=== PATIENT | male | born 1960 | race Asian ===

== ENCOUNTER 2016-10-25 17:31 | Inpatient (IN) | payer OTHER ==
[~2016-10-25] VITALS: Ht 180.3 cm; Wt 68.5 kg
[~2016-10-25 17:31] MED LIST: ACET325T53 PO; ACID1TAB12 PO; ALBU18HF2 IH; ALLA266C2 TP; CLON1PAT2 TD; DOCU-25 PO; DRON2.5C PO; GABA300C PO; LEVO500T15 PO; LIDO30AD10 TP; Lactose-Free Food PO; MAG30ORA PO; MAGN400O6 PO; NA P133E RC; Nortriptyline Hcl PO; Ondansetron Hcl/Pf IVP; PANT40TA2 PO; RXVAN XX; TIZA4TAB4 PO
[2016-10-25] MEDS ORDERED: ONDANSETRON HCL/PF 4 MG/2 ML VIAL ONE (19:18)
[2016-10-25] MEDS ORDERED: IV SET PRIMARY 1 EA INFUS.SET MC ONE (19:18)
[2016-10-25] MEDS ORDERED: IV NS 0.9% 1,000 ML ONE (19:18)
[2016-10-25] MEDS ORDERED: HYDROMORPHONE INJ 2 MG/ML DISP.SYRIN ONE (19:18)
[2016-10-25 19:20] LABS: BASOPHILS % (AUTO) 0.5 % (0.0-2.0); DIFF TOTAL % 100 %; EOSINOPHILS # (AUTO) 0.2 /CMM (0.0-0.7); EOSINOPHILS % (AUTO) 2.7 % (0.0-6.0); HEMATOCRIT 29 % (39-51); LYMPHOCYTES # (AUTO) 1.6 /CMM (0.8-4.8); LYMPHOCYTES % (AUTO) 20.7 % (20.0-44.0); MEAN CORPUSCULAR HEMOGLOBIN 26 PG (26.0-33.0); MEAN CORPUSCULAR HGB CONC 31 g/dl (31.0-36.0); MEAN CORPUSCULAR VOLUME 83 fL (80-96); MONOCYTES # (AUTO) 0.4 /CMM (0.1-1.30); MONOCYTES % (AUTO) 5.7 % (2.0-12.0); NEUTROPHILS # (AUTO) 5.5 /CMM (1.8-8.9); NEUTROPHILS % (AUTO) 70.4 % (43.0-81.0); PLATELET COUNT (AUTO) 552 /CMM (150-450); RED BLOOD CELL COUNT(AUTO) 3.47 MIL/uL (4.5-6.0); WHITE BLOOD COUNT (AUTO) 7.7 K/uL (4.3-11.0)
[2016-10-25] MEDS ORDERED: IV NS 0.9% 1,000 ML BAG IV ONE (19:30)
[2016-10-25] MEDS ORDERED: HYDROMORPHONE INJ 2 MG/ML DISP.SYRIN IV ONE (19:30)
[2016-10-25] MEDS ORDERED: ONDANSETRON HCL/PF 4 MG/2 ML VIAL IVP ONE (19:30)
[2016-10-25 19:31] LABS: CALCIUM, SERUM 7.6 mg/dL (8.5-10.1); CREATININE 0.9 mg/dL (0.6-1.3); POTASSIUM 4.3 mmol/L (3.5-5.1)
[2016-10-25 19:37] LABS: INR 0.99 (0.87-1.13); PROTHROMBIN TIME 10.4 SECS (9.5-12.7)
[2016-10-25 20:00] VITALS: BP 166/100
[2016-10-25] MEDS ORDERED: MAGNESIUM HYDROXIDE 30 ML UDC PO PRN (21:00)
[2016-10-25] MEDS ORDERED: HYDROCODONE/APAP 10/325MG 1 EA TABLET PO PRN (21:00)
[2016-10-25] MEDS ORDERED: MAG HYDROX/AL HYDROX/SIMETH 30 ML UDC PO PRN ×2 (21:00→21:30)
[2016-10-25] MEDS ORDERED: ACETAMINOPHEN 325 MG TABLET PO PRN (21:00)
[2016-10-25] MEDS ORDERED: Z GUARD REMEDY 2 OZ OINT TP PRN ×2 (21:00→21:30)
[2016-10-25] MEDS ORDERED: CLONIDINE HCL 0.2MG/24H PTWK 1 EA PATCH TD SCH (21:30)
[2016-10-25] MEDS ORDERED: HYDROMORPHONE 1 MG/1 ML DISP.SYRIN IV PRN (21:30)
[2016-10-25] MEDS ORDERED: ALBUTEROL SULFATE 8 GM HFA.AER.AD IH PRN (21:30)
[2016-10-25] MEDS: HYDROMORPHONE INJ 2 MG/ML DISP.SYRIN IV PRN (21:44)
[2016-10-25] MEDS ORDERED: LIDOCAINE 5% (PATCH) 1 EA PATCH TP ONE (21:52)
[2016-10-25 22:00] VITALS: BP 166/100
[2016-10-25] MEDS ORDERED: ZOLPIDEM TARTRATE 5 MG TABLET PO PRN (22:00)
[2016-10-25] MEDS: LIDOCAINE 5% (PATCH) 1 EA PATCH TP SCH (22:19)
[2016-10-26] VITALS: BP 152/92
[2016-10-26] MEDS ORDERED: hydrALAZINE HCL 25 MG TABLET PO PRN (00:30)
[2016-10-26] MEDS ORDERED: HYDR8TAB2 PO (01:04)
[2016-10-26] MEDS: HYDROMORPHONE INJ 2 MG/ML DISP.SYRIN IV PRN ×5 (01:48→20:35)
[2016-10-26 06:37] LABS: BASOPHILS % (AUTO) 0.6 % (0.0-2.0); DIFF TOTAL % 100 %; EOSINOPHILS # (AUTO) 0.2 /CMM (0.0-0.7); EOSINOPHILS % (AUTO) 3.2 % (0.0-6.0); HEMATOCRIT 26 % (39-51); HEMOGLOBIN 8.4 g/dL (13.5-17.5); LYMPHOCYTES # (AUTO) 1.9 /CMM (0.8-4.8); LYMPHOCYTES % (AUTO) 24.1 % (20.0-44.0); MEAN CORPUSCULAR HEMOGLOBIN 27 PG (26.0-33.0); MEAN CORPUSCULAR HGB CONC 32 g/dl (31.0-36.0); MEAN CORPUSCULAR VOLUME 84 fL (80-96); MONOCYTES # (AUTO) 0.7 /CMM (0.1-1.30); MONOCYTES % (AUTO) 9.1 % (2.0-12.0); NEUTROPHILS # (AUTO) 4.9 /CMM (1.8-8.9); PLATELET COUNT (AUTO) 445 /CMM (150-450); RED BLOOD CELL COUNT(AUTO) 3.09 MIL/uL (4.5-6.0); WHITE BLOOD COUNT (AUTO) 7.8 K/uL (4.3-11.0)
[2016-10-26 07:24] LABS: CALCIUM, SERUM 7.4 mg/dL (8.5-10.1); CREATININE 0.8 mg/dL (0.6-1.3); PHOSPHORUS 3.5 mg/dL (2.5-4.9); POTASSIUM 3.4 mmol/L (3.5-5.1)
[2016-10-26 08:00] VITALS: BP 160/99
[2016-10-26] MEDS: TIZANIDINE HCL 4 MG TABLET PO SCH ×2 (08:06→16:23)
[2016-10-26] MEDS: DOCUSATE SODIUM 100 MG CAPSULE PO SCH ×2 (08:06→16:23)
[2016-10-26] MEDS: GABAPENTIN 300 MG CAPSULE PO SCH ×3 (08:06→16:23)
[2016-10-26] MEDS: DRONABINOL (2.5 MG) 2.5 MG CAPSULE PO SCH (08:07)
[2016-10-26] MEDS: ACIDOPHILUS/BULGARICUS 1 EACH TAB.CHEW PO SCH ×3 (08:07→16:23)
[2016-10-26] MEDS: PANTOPRAZOLE 40 MG TABLET.DR PO SCH (08:07)
[2016-10-26] MEDS: ONDANSETRON HCL/PF 4 MG/2 ML VIAL IVP PRN (08:08)
[2016-10-26] MEDS: ENOXAPARIN SODIUM 40 MG/0.4 ML DISP.SYRIN SQ SCH (08:10)
[2016-10-26 09:30] VITALS: BP 160/99
[2016-10-26] MEDS ORDERED: SECONDARY IV SET 1 EA INFUS.SET MC ONE ×3 (11:48→22:16)
[2016-10-26] MEDS ORDERED: IV SET PRIMARY PUMP SET 1 EA INFUS.SET MC ONE ×2 (11:51→22:04)
[2016-10-26] MEDS: Magnesium 1GM/D5W 100ML PREMIX 100 ML IV SCH ×4 (11:54→15:48)
[2016-10-26] MEDS ORDERED: POTASSIUM CHLORIDE 20 MEQ TAB.PRT.SR PO ONE (13:00)
[2016-10-26 16:00] VITALS: BP 150/92
[2016-10-26 17:06] VITALS: BP 150/72
[2016-10-26 20:00] VITALS: BP 161/82
[2016-10-26] MEDS: LIDOCAINE 5% (PATCH) 1 EA PATCH TP SCH ×2 (20:36→20:59)
[2016-10-26] MEDS ORDERED: VANCOMYCIN 1 GM in IV D5W 250 ML IV ONE (21:30)
[2016-10-26] MEDS ORDERED: VANCOMYCIN 1 GM VIAL ONE (21:54)
[2016-10-26] MEDS ORDERED: IV D5W 250 ML IV ONE (21:54)
[2016-10-26] MEDS ORDERED: IV NS 0.9% 250 ML IV ONE (22:04)
[2016-10-26] MEDS ORDERED: IV NS 0.9% 100 ML IV ONE (22:16)
[2016-10-26] MEDS ORDERED: CEFTRIAXONE 1 G VIAL ONE (22:16)
[2016-10-26] MEDS ORDERED: CEFTRIAXONE 2 G VIAL ONE (22:42)
[2016-10-26] MEDS: CEFTRIAXONE 2 G in IV D5W 100 ML IV SCH (23:12)
[2016-10-27] MEDS: HYDROMORPHONE INJ 2 MG/ML DISP.SYRIN IV PRN ×5 (00:29→17:14)
[2016-10-27] MEDS: ONDANSETRON HCL/PF 4 MG/2 ML VIAL IVP PRN ×3 (00:33→13:56)
[2016-10-27 06:54] LABS: BASOPHILS % (AUTO) 0.3 % (0.0-2.0); DIFF TOTAL % 100 %; EOSINOPHILS # (AUTO) 0.2 /CMM (0.0-0.7); EOSINOPHILS % (AUTO) 1.6 % (0.0-6.0); HEMATOCRIT 26 % (39-51); HEMOGLOBIN 8.5 g/dL (13.5-17.5); LYMPHOCYTES % (AUTO) 9.4 % (20.0-44.0); MEAN CORPUSCULAR HEMOGLOBIN 27 PG (26.0-33.0); MEAN CORPUSCULAR HGB CONC 32 g/dl (31.0-36.0); MEAN CORPUSCULAR VOLUME 84 fL (80-96); MONOCYTES # (AUTO) 0.6 /CMM (0.1-1.30); MONOCYTES % (AUTO) 5.3 % (2.0-12.0); NEUTROPHILS # (AUTO) 8.8 /CMM (1.8-8.9); NEUTROPHILS % (AUTO) 83.4 % (43.0-81.0); PLATELET COUNT (AUTO) 390 /CMM (150-450); RED BLOOD CELL COUNT(AUTO) 3.14 MIL/uL (4.5-6.0); WHITE BLOOD COUNT (AUTO) 10.6 K/uL (4.3-11.0)
[2016-10-27 07:08] LABS: CALCIUM, SERUM 8.3 mg/dL (8.5-10.1); CREATININE 0.8 mg/dL (0.6-1.3); PHOSPHORUS 3.4 mg/dL (2.5-4.9); POTASSIUM 4.1 mmol/L (3.5-5.1)
[2016-10-27] MEDS ORDERED: FEE PK DOSING 1 MIN EA MC ONE (07:26)
[2016-10-27] MEDS: PANTOPRAZOLE 40 MG TABLET.DR PO SCH (07:30)
[2016-10-27 08:00] VITALS: BP 172/88
[2016-10-27] MEDS ORDERED: SECONDARY IV SET 1 EA INFUS.SET MC ONE (08:28)
[2016-10-27] MEDS: GABAPENTIN 300 MG CAPSULE PO SCH ×3 (09:00→17:51)
[2016-10-27] MEDS: DOCUSATE SODIUM 100 MG CAPSULE PO SCH ×2 (09:00→17:51)
[2016-10-27] MEDS: ENOXAPARIN SODIUM 40 MG/0.4 ML DISP.SYRIN SQ SCH (09:00)
[2016-10-27] MEDS: TIZANIDINE HCL 4 MG TABLET PO SCH ×2 (09:00→17:51)
[2016-10-27] MEDS: DRONABINOL (2.5 MG) 2.5 MG CAPSULE PO SCH ×2 (09:00→14:01)
[2016-10-27] MEDS: ACIDOPHILUS/BULGARICUS 1 EACH TAB.CHEW PO SCH ×3 (09:00→17:51)
[2016-10-27] MEDS ORDERED: PROMETHAZINE HCL 25 MG/ML AMPUL IV PRN (09:30)
[2016-10-27] MEDS: VANCOMYCIN 0.75 GM in IV D5W 250 ML IV SCH ×2 (10:23→17:54)
[2016-10-27] MEDS: Magnesium 1GM/D5W 100ML PREMIX 100 ML IV SCH ×2 (11:00→12:00)
[2016-10-27] MEDS ORDERED: LORAZEPAM INJ 2 MG/ML VIAL IV PRN (12:30)
[2016-10-27] MEDS ORDERED: PROMETHAZINE HCL 25 MG/ML AMPUL IM PRN (15:30)
[2016-10-27 16:10] VITALS: BP 169/98
[2016-10-27] MEDS ORDERED: HYDROMORPHONE HCL 2 MG TABLET PO PRN (18:30)
[2016-10-27] MEDS: TOPIRAMATE 25 MG TABLET PO SCH ×2 (18:30→18:58)
[2016-10-27] MEDS: ACETAMINOPHEN 325 MG TABLET PO SCH (18:58)
[2016-10-27] MEDS: KETOROLAC TROMETHAMINE INJ 30 MG/ML VIAL IV SCH (18:59)
[2016-10-27 19:00] VITALS: BP 149/81
[2016-10-27] MEDS: oxyCODONE HCL SR 10MG TAB.SR.12H PO SCH (22:22)
[2016-10-27] MEDS: LIDOCAINE 5% (PATCH) 1 EA PATCH TP SCH (23:16)
[2016-10-27] MEDS: CEFTRIAXONE 2 G in IV D5W 100 ML IV SCH (23:16)
[2016-10-28] MEDS: ACETAMINOPHEN 325 MG TABLET PO SCH ×2 (00:19→04:51)
[2016-10-28] MEDS: VANCOMYCIN 0.75 GM in IV D5W 250 ML IV SCH ×2 (00:20→08:49)
[2016-10-28] MEDS: KETOROLAC TROMETHAMINE INJ 30 MG/ML VIAL IV SCH (04:51)
[2016-10-28 07:22] LABS: BASOPHILS # (AUTO) 0.1 /CMM (0.0-0.2); BASOPHILS % (AUTO) 0.6 % (0.0-2.0); DIFF TOTAL % 100 %; EOSINOPHILS % (AUTO) 0.1 % (0.0-6.0); HEMATOCRIT 34 % (39-51); LYMPHOCYTES % (AUTO) 6.3 % (20.0-44.0); MEAN CORPUSCULAR HEMOGLOBIN 27 PG (26.0-33.0); MEAN CORPUSCULAR HGB CONC 33 g/dl (31.0-36.0); MEAN CORPUSCULAR VOLUME 82 fL (80-96); MONOCYTES # (AUTO) 0.7 /CMM (0.1-1.30); MONOCYTES % (AUTO) 4.3 % (2.0-12.0); NEUTROPHILS # (AUTO) 14.1 /CMM (1.8-8.9); NEUTROPHILS % (AUTO) 88.7 % (43.0-81.0); PLATELET COUNT (AUTO) 571 /CMM (150-450); WHITE BLOOD COUNT (AUTO) 15.9 K/uL (4.3-11.0)
[2016-10-28 07:54] LABS: CALCIUM, SERUM 8.5 mg/dL (8.5-10.1); CREATININE 0.8 mg/dL (0.6-1.3); POTASSIUM 3.5 mmol/L (3.5-5.1)
[2016-10-28 08:00] VITALS: BP 144/98
[2016-10-28] MEDS: DOCUSATE SODIUM 100 MG CAPSULE PO SCH (08:23)
[2016-10-28] MEDS: PANTOPRAZOLE 40 MG TABLET.DR PO SCH (08:23)
[2016-10-28] MEDS: oxyCODONE HCL SR 10MG TAB.SR.12H PO SCH (08:24)
[2016-10-28] MEDS: ENOXAPARIN SODIUM 40 MG/0.4 ML DISP.SYRIN SQ SCH (08:32)
[2016-10-28] MEDS: GABAPENTIN 300 MG CAPSULE PO SCH (08:32)
[2016-10-28] MEDS: TIZANIDINE HCL 4 MG TABLET PO SCH (08:32)
[2016-10-28] MEDS: ACIDOPHILUS/BULGARICUS 1 EACH TAB.CHEW PO SCH (08:34)
[2016-10-28] MEDS: DRONABINOL (2.5 MG) 2.5 MG CAPSULE PO SCH (08:35)
[2016-10-28] MEDS: ONDANSETRON HCL/PF 4 MG/2 ML VIAL IVP PRN (08:46)
== END 2016-10-28 10:15 | disposition left against medical advice (07) | DRG 347 ==
LOC: ER 17:34 → MEDSG2 21:00
PROVIDERS: ADMIT Internal Medicine; ATTEND Internal Medicine
DX: M47.816 Spondylosis without myelopathy or radiculopathy, lumbar region (principal); F11.20 Opioid dependence, uncomplicated; E78.5 Hyperlipidemia, unspecified; M48.06 Spinal stenosis, lumbar region; G89.29 Other chronic pain; J45.909 Unspecified asthma, uncomplicated; M54.5 Low back pain
CPT/HCPCS: 36415; 80048-TC; 80202-TC; 83735-TC; 84100-TC; 85025-TC; 85652-TC; 85730-TC; 86140-TC; 87081-TC; A4606; J0696; J1170; J1650; J1885; J2060; J2405; J2550; J3370; J3475; J7030; J7050; J7060; Q0167; Z7610

== ENCOUNTER 2017-10-29 03:30 | Emergency (ER) | payer OTHER ==
[~2017-10-29] VITALS: Ht 165.1 cm; Wt 63.5 kg
[~2017-10-29 03:30] MED LIST changes: +DOCU-141 PO; -DOCU-25 PO; +HYDR8TAB2 PO; -LEVO500T15 PO; +LEVO500T2 PO
--- NOTE | 2017-10-29 03:30 | NUR ---
BB SELF FROM HOME C/O MID BACK PAIN S/P FALL DOWN STAIRS. -KO. PT AMBULATED WITH STEADY GAIT TO ER BED 3. RESP EVEN AND UNLABORED. NO S/S OF ACUTE DISTRESS NOTED. AAOX4. MD AT BEDSIDE FOR EVAL.
[2017-10-29] MEDS ORDERED: HYDROMORPHONE 1 MG/1 ML DISP.SYRIN ONE (03:59)
[2017-10-29] MEDS ORDERED: ONDANSETRON 4 MG TAB.RAPDIS ONE (03:59)
[2017-10-29] MEDS ORDERED: HYDROMORPHONE 1 MG/1 ML DISP.SYRIN IM ONE (04:00)
[2017-10-29] MEDS ORDERED: ONDANSETRON 4 MG TAB.RAPDIS SL ONE (04:00)
--- NOTE | 2017-10-29 04:08 | NUR ---
PT TO CT
--- NOTE | 2017-10-29 04:21 | NUR ---
BACK FROM CT
--- NOTE | 2017-10-29 04:45 | NUR ---
Patient is resting comfortably in bed with eyes closed. Easily aroused. VSS
--- NOTE | 2017-10-29 05:22 | NUR ---
Patient discharged to home in stable condition. Written and verbal after care instructions given. Patient verbalizes understanding of instruction. vss. ambulated out with steady gait. 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 pt verbalized understanding
[2017-10-29 05:23] VITALS: BP 143/89
== END 2017-10-29 05:24 | disposition home or self-care (01) ==
LOC: ER 03:30
DX: S20.229A Contusion of unspecified back wall of thorax, initial encounter (principal); M54.5 Low back pain; G89.29 Other chronic pain; F11.20 Opioid dependence, uncomplicated; F17.200 Nicotine dependence, unspecified, uncomplicated; J45.909 Unspecified asthma, uncomplicated; K91.2 Postsurgical malabsorption, not elsewhere classified; Z87.11 Personal history of peptic ulcer disease; Z88.5 Allergy status to narcotic agent; Z88.1 Allergy status to other antibiotic agents; Z88.6 Allergy status to analgesic agent; Z88.8 Allergy status to other drugs, medicaments and biological substances; W10.9XXA Fall (on) (from) unspecified stairs and steps, initial encounter; Y93.89 Activity, other specified; Y92.89 Other specified places as the place of occurrence of the external cause; Y99.8 Other external cause status
CPT/HCPCS: 72110; 96372; 99284; A4606; J1170; Q0162; Z7610

== ENCOUNTER 2018-09-27 04:42 | Emergency (ER) | payer OTHER ==
[~2018-09-27] VITALS: Ht 180.3 cm; Wt 58.1 kg
--- NOTE | 2018-09-27 05:00 | NUR ---
PT BIBSELF COMPLAINING OF RIGHT HIP REDDNESS AND SWELLING X10 DAYS. PT ABLE TO AMBULATE WITH CANE ASSISTANCE. STATES UNABLE TO SIT OR SLEEP COMFORTABLY. PT DENIES FEVER OR DRAINAGE. PT AAOX4. RESPIRATIONS EVEN AND UNLABORED. NO ACUTE DISTRESS NOTED. WILL CONTINUE TO MONITOR
[2018-09-27] MEDS ORDERED: ONDANSETRON 4 MG TAB.RAPDIS ONE (05:13)
[2018-09-27] MEDS ORDERED: MORPHINE SULFATE INJ 4 MG/ML DISP.SYRIN ONE (05:13)
[2018-09-27] MEDS ORDERED: LIDOCAINE 1% INJ 50 ML MDV IJ ONE (05:30)
[2018-09-27] MEDS ORDERED: MORPHINE SULFATE INJ 2 MG/ML DISP.SYRIN IM ONE (05:30)
[2018-09-27] MEDS ORDERED: ONDANSETRON 4 MG TAB.RAPDIS SL ONE (05:30)
--- NOTE | 2018-09-27 05:40 | NUR ---
AT BEDSIDE FOR I&D
[2018-09-27] MEDS ORDERED: CEPHALEXIN MONOHYDRATE 500 MG CAPSULE PO ONE ×2 (06:00→06:01)
[2018-09-27] MEDS ORDERED: SULFAMETH/TRIMETH 800/160 MG 1 UDTAB TABLET PO ONE ×2 (06:00→06:01)
--- NOTE | 2018-09-27 06:04 | NUR ---
Patient discharged to home in stable condition. Written and verbal after care instructions given. Patient verbalizes understanding of instruction. Pt ambulatory with a steady gait
[2018-09-27 06:05] VITALS: BP 138/72
== END 2018-09-27 06:06 | disposition home or self-care (01) ==
LOC: ER 04:44
DX: L02.31 Cutaneous abscess of buttock (principal); L03.317 Cellulitis of buttock; K21.9 Gastro-esophageal reflux disease without esophagitis; D64.9 Anemia, unspecified; G89.29 Other chronic pain; J45.909 Unspecified asthma, uncomplicated; F17.200 Nicotine dependence, unspecified, uncomplicated; M86.9 Osteomyelitis, unspecified; Z98.890 Other specified postprocedural states; Z88.5 Allergy status to narcotic agent; Z88.8 Allergy status to other drugs, medicaments and biological substances; Z60.2 Problems related to living alone; Z79.899 Other long term (current) drug therapy
CPT/HCPCS: 10060; 96372; 99284; A4606; A6402 ×2; J2270; Q0162; Z7610